=== PATIENT | female | born 1950 | race Caucasian/White ===

== ENCOUNTER 2016-05-14 08:43 | Day surgery (SDC) | payer OTHER ==
[~2016-05-14] VITALS: Ht 170.2 cm; Wt 97.5 kg
[~2016-05-14 08:43] MED LIST: CHOL200049 PO; ESTR1PAT TD; LEVO125T2 PO; LOSA25TA21 PO; MG T1TAB2 PO; OMEP20CA11 PO; Sodium Chloride LOK Flush 10 mL Syringe IV PRN; fentaNYL-PF 50 mCg/mL 2 mL Inj IVPUSH PRN; restasis
[2016-05-14 09:07] VITALS: BP 154/94; PULSE 69; RESP 14; O2SAT 97
[2016-05-14] MEDS: 0.9% Sodium Chloride 1,000 ML IV SCH ×2 (09:20→10:09)
[2016-05-14 09:44] VITALS: BP 133/79; PULSE 59; RESP 16; O2SAT 92
[2016-05-14 09:53] VITALS: BP 121/69; PULSE 60; RESP 16; O2SAT 93
[2016-05-14 09:59] VITALS: BP 136/73; PULSE 74; RESP 16; O2SAT 97
--- NOTE | 2016-05-14 11:13 | ENDO ---
[address] [address] ENDOSCOPY PROCEDURE PATIENT: ILDA MC : 1950 MR#: [id number] ADMIT: 05/14/2016 JOB ID: [id number] DATE OF SERVICE: 05/14/2016 TYPE OF OPERATION: Esophagogastroduodenoscopy with biopsy. PREOPERATIVE DIAGNOSIS(ES): Gastroesophageal reflux disease. POSTOPERATIVE DIAGNOSIS(ES): Mild nonerosive gastritis. ANESTHESIA: Fentanyl 100 mcg, Versed 5 mg IV administered. COMPLICATIONS: None. BLOOD LOSS: Minimal. DESCRIPTION OF PROCEDURE: After risks and benefits were explained to the patient, informed consent was obtained. After anesthesia administered, upper endoscope was then inserted in the mouth, intubating into the esophagus, stomach, second portion of duodenum. Mucosa carefully examined. After the procedure was done, the scope withdrawn and the procedure terminated. FINDINGS: Upon inspection of the esophagus, the esophagus was normal without masses, ulcers, or lesions. Z-line located 40 cm from incisors. Upon entering stomach, there is mild nonerosive gastritis that was seen. No masses, ulcers, or lesions were seen. Retroflexion was normal of duodenal bulb, first and second portions. Random biopsies taken of antrum, body of the stomach and distal esophagus. IMPRESSION: Mild nonerosive gastritis. RECOMMENDATION: Await pathology results. Follow up in GI clinic as needed.
--- NOTE | 2016-05-17 13:03 | PATH ---
SURGICAL PATHOLOGY Attending Physician:Onel Zhao MD CASE STATUS: Signed Out PATIENT NAME: ILDA MC PID: [id number] : 1950 DATE COLLECTED:05/14/2016 17:32 SPECIMEN: 1: Stomach, Antrum, Biopsy 2: Gastric, Biopsy 3: Esophagus, Biopsy CLINICAL HISTORY: 1). ANTRUM BIOPSY 2). BODY BIOPSY 3). DISTAL ESOPHAGUS BIOPSY FINAL DIAGNOSIS: 1. Antrum Biopsy: Mild chronic gastritis involving antral mucosa. Negative for evidence of Helicobacter. Negative for intestinal metaplasia. Negative for dysplasia and malignancy. 2. Gastric Body Biopsy: Mild chronic gastritis involving fundic mucosa. Negative for evidence of Helicobacter. Negative for intestinal metaplasia. Negative for dysplasia and malignancy. 3. Distal Esophagus Biopsy: Fragments of squamous epithelium, negative for dysplasia and malignancy. No gastric-type epithelium identified. Eosinophils are not increased. ICD10 K29.70 GROSS DESCRIPTION: The specimen is received in three formalin filled containers labeled with the patient's name. 1). The specimen is sublabeled "antrum" and consists of 2 portions of tissue which aggregate to 0.4 x 0.3 x 0.2 CM. The specimen is entirely submitted in cassette 1A. 2). The specimen is sublabeled "body" and consists of 2 portions of tissue which aggregate to 0.3 x 0.3 x 0.3 CM. The specimen is entirely submitted in cassette 2A. 3). The specimen is sublabeled "distal esophagus" and consists of 2 portions of tissue which aggregate to 0.3 x 0.2 x 0.2 CM. The specimen is entirely submitted in cassette 3A. 05/14/2016 [facility] ICD-9 CODES: CPT CODES: 1: 89741 2: 12528 3: 80014 Electronically Signed Out Iván Chambers MD [facility] [address], [place] [address] Technical component performed at [facility], [facility] [address], [place], [address]
== END 2016-05-14 23:59 | disposition home or self-care (01) ==
LOC: END 08:43
PROVIDERS: ATTEND Internal Medicine Gastroenterology
DX: K29.50 Unspecified chronic gastritis without bleeding (principal)
CPT/HCPCS: 43239; G0500; J7030